=== PATIENT | female | born 2005 | race Caucasian/White ===

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

== ENCOUNTER 2023-01-08 21:36 | Outpatient (CLI) | payer MEDICAID, SELFPAY ==
[2023-01-08] VITALS (16 sets, daily range): BP systolic 119–124; BP diastolic 66; PULSE 100–194; RESP 15; TEMP 35.8; O2SAT 97–98; BMI 25.4
[2023-01-08 22:29] LABS: Bacteria Urine TRACE /hpf; Bilirubin Urine Neg (Negative); Blood Urine Neg (Negative); Glucose Urine UA Norm (Normal); Ketones Urine Negative (Negative); Leukocyte Esterase Urine Negative (Negative); Nitrate Urine Negative (Negative); Protein Urine Neg (Negative); Squamous Epithelial Cell Urine 0-4 /hpf (0-5); Urine Appearance Clear (CLEAR); Urine Color Yellow (Yellow); Urobilinogen Urine Norm (Negative); pH Urine 7 (5-7)
[2023-01-08 22:30] LABS: Add Urine Culture? No
== END 2023-01-08 23:12 | disposition home or self-care (01) ==
LOC: OPOB 21:37 → OBGYN 21:41
PROVIDERS: PCP Family Medicine; Visit Provider Family Medicine
DX: O26.899 Other specified pregnancy related conditions, unspecified trimester (principal); R25.2 Cramp and spasm; Z3A.00 Weeks of gestation of pregnancy not specified
CPT/HCPCS: 59025; 81001; 99211

== ENCOUNTER 2023-03-10 05:49 | Inpatient (IN) | payer MEDICAID, SELFPAY ==
[2023-03-10] VITALS (84 sets, daily range): BP systolic 85–134; BP diastolic 50–83; PULSE 72–112; RESP 14–18; TEMP 36.5–37.1; O2SAT 96–100; BMI 26.7
[2023-03-10 02:44] LABS: Basophils # 0.1 10^3/uL (0.0-0.1); Basophils % 0.5 %; Eosinophils # 0.2 10^3/uL (0.0-0.8); Eosinophils % 1.4 %; Lymphocytes # 2.3 10^3/uL (1.5-6.5); Mean Corpuscular Hemoglobin 24.7 pg (28.0-34.0); Mean Corpuscular Volume 79.5 fl (81-99); Mean Platelet Volume 12.2 fL (7.4-10.4); Monocytes % 9.5 %; Neutrophils # 7.08 10^3/uL (1.8-8.0); Neutrophils % 64.7 %; Nucleated Red Blood Cells % 0 %; Platelet Count 183 10^3/cmm (130-400); Red Blood Count 3.65 10^6/uL (4.1-5.3); Red Cell Distribution Width 14.6 % (12.1-15.1); White Blood Count 10.9 10^3/uL (4.5-13.0)
[2023-03-10] MEDS: lactated ringers 1,000 ML 999 ML IV (02:49)
[2023-03-10] MEDS: ampicillin 2,000 MG in sodium chloride 0.9% (plus) 50 ML 100 MG IV (02:49)
[2023-03-10 02:54] LABS: Amphetamines Screen Urine Negative (Negative); Barbiturates Screen Urine Negative (Negative); Benzodiazepines Screen Urine Negative (Negative); Cocaine Screen Urine Negative (Negative); Opiate Screen Urine Negative (Negative); PCP Screen Urine Negative (Negative); THC Screen Urine Negative (Negative)
[2023-03-10] MEDS: dextrose 5%-lactated ringers 1,000 ML 125 ML IV ×2 (03:55→10:31)
--- NOTE | 2023-03-10 04:20 | ANES.PAUD2 ---
Pre-Anesthetic Update Pre-Anesthetic Assessment: Date of Surgery/Procedure: 03/10/23 Proposed Procedure: Labor Epidural Any changes to Pre-Anesthetic Assessment?: No Last Intake: 2300 03/09/23 Labs Last 48hrs: Short CBC 03/10/23 Range/Units 02:30 WBC 10.9 (4.5-13.0) 10^3/ uL Hgb 9.0 L (11.5-15.3) g/dL Hct 29.0 L (37.0-47.0) % MCV 79.5 L (81-99) fl Plt Count 183 (130-400) 10^3/c mm Neut % (Auto) 64.7 % Neut # (Auto) 7.08 (1.8-8.0) 10^3/u L Vitals: Pulse Rate 89 03/10/23 04:14 Respiratory Effort Spontaneous, Non- Labored 03/10/23 02:37 Respiratory Depth Normal 03/10/23 02:37 Respiratory Patter n Normal 03/10/23 02:37 Blood Pressure 127/63 03/10/23 04:07 Pulse Oximetry 98 03/10/23 04:14 Oxygen Delivery Me thod Room Air 03/10/23 02:37 Cardiac Studies: No Data to Display Anesthesia Procedures Epidural: Time Out Performed: Yes Consents Signed: Procedure Consent Consent: from patient, risks and benefits reviewed and patient agrees to proceed Lumbar Level: L3-L4 Epidural position: sitting Epidural procedure: sterile prep of area, 1% lidocaine to numb the area, negative for paresthesia passed, test dose given, 1.5% xylocaine 1:200k epi, placed PCEA, no systemic response, sterile dressing applied and 0.2% Ropiavacaine @ mls/hr (10 ml/hr) Additional Comments: LUCIA at 5.5cm on first attempt catheter threaded with ease to 12cm - CSF - Heme test dose completed. 100mcg Fentanyl given via epidural patient reports adequate analgesia.
[2023-03-10] MEDS: ampicillin 1,000 MG in sodium chloride 0.9% (plus) 50 ML 100 MG IV ×2 (06:26→10:21)
[2023-03-10] MEDS: ondansetron 2 mg/ML SDV 2 mL 4 MG IVP (07:48)
[2023-03-10] MEDS: alum-mag-hydroxide-sime 30 mL UDC PO (07:48)
[2023-03-10] MEDS: metoclopramide 5 mg/mL SDV 2 mL 10 MG IV (10:30)
--- NOTE | 2023-03-10 12:03 | PM.DELIVERY ---
Delivery Note: Date of delivery: March 10, 2023 Pre-delivery diagnoses: 18-year-old 1 at 40 weeks estimated gestational age presenting in active labor. Post-delivery diagnoses: Status post status post spontaneous vaginal delivery Procedure: Spontaneous vaginal delivery Delivering Physician: Eddie Correa Estimated blood loss (mL): 100 Pre-Delivery Course: The patient presented to the hospital in active labor. She progressed to complete without difficulty. She had spontaneous rupture of membranes. She was GBS positive and received multiple doses of ampicillin. An epidural was placed. Delivery: DELIVERY: The patient progressed to complete without difficulty. She delivered a male with a weight of 3040 g with Apgars of 8, 9. The baby was delivered from the SUMMER position and placed on the mother's abdomen. The cord was then clamped and cut. There was no nuchal cord. There was no meconium. The placenta and 3 vessel cord were delivered intact shortly thereafter. The perineum and vaginal vault were carefully examined. No lacerations were noted. Both the mother and the baby were in stable condition. Post-Delivery Status: Good History History History 1 Term 0 0 Miscarriages/Ectopic 0 Living Children 1 A&P Assessment and plan (1) Supervision of normal first : I anticipate routine care. (2) 40 weeks gestation of : (3) GBS (group B Streptococcus carrier), +RV culture, currently : (4) Spontaneous vaginal delivery: Coding Level of Care Code Acute Code for Chg Fwd Diagnoses Supervision of normal first Z34.00 40 weeks gestation of Z3A.40 GBS (group B Streptococcus carrier), +RV culture, currently O99.820 Spontaneous vaginal delivery O80
[2023-03-10] MEDS: HYDROcodone-acetaminophen 5-325 mg Tablet PO ×2 (12:51→22:23)
[2023-03-10] MEDS: lanolin oint 7 gm 1 APPLIC TOPICAL (12:51)
[2023-03-10] MEDS: benzocaine-menthol 78 gm Canister 1 SPRAY TOPICAL (12:51)
[2023-03-10] MEDS: ibuprofen 800 mg tablet PO ×2 (14:56→22:23)
--- NOTE | 2023-03-10 16:38 | PC.NURSE ---
pt up to bathroom with moderate assistance. pt able to void 250mL. janet care demonstrated. gown and underwear changed. pad lined with tucks and dermaplast spray. pt then moved to OB8 via wheelchair. oriented to room/call light. proud parent pack and feeding log discussed. encouraged pt to rest while baby is sleeping, but to wake him to feed every 2-3 hours. pt instructed to call nurse for assistance next time she needs to use restroom
[2023-03-10] MEDS: docusate sodium 100 mg Capsule PO (17:45)
[2023-03-11 01:00] LABS: Hematocrit 28.3 % (37.0-47.0); Hemoglobin 8.5 g/dL (11.5-15.3); Mean Corpuscular Volume 83.2 fl (81-99); Mean Platelet Volume 11.7 fL (7.4-10.4); Platelet Count 170 10^3/cmm (130-400); White Blood Count 18.6 10^3/uL (4.5-13.0)
[2023-03-11 04:00] VITALS: BP 118/70; PULSE 84; RESP 181; TEMP 36.7; O2SAT 96
[2023-03-11] MEDS: HYDROcodone-acetaminophen 5-325 mg Tablet PO (04:43)
--- NOTE | 2023-03-11 08:02 | PM.OPHPUD ---
Labor & Delivery H&P Update Date of Procedure: March 10, 2023 Date H&P Performed: 03/09/23 Admission Diagnosis: 18-year-old 1 1 at 40 weeks estimated gestational age Other information: The patient is a 18-year-old 1 at 40 weeks EGA presented to the hospital. Her has been relatively unremarkable. Her labs have been as follows. Her blood type is O+. Her antibody screen is negative. She was THC positive. She passed her glucose screen. She was GBS positive. She is rubella immune. The remainder of her infectious disease profile was within normal limits.
[2023-03-11] MEDS: docusate sodium 100 mg Capsule PO ×2 (08:53→18:37)
[2023-03-11] MEDS: prenatal vitamin Capsule 1 CAP PO (08:53)
[2023-03-11] MEDS: ibuprofen 800 mg tablet PO ×3 (08:53→20:51)
--- NOTE | 2023-03-11 09:13 | ANE.PACU2 ---
Inpatient post-anesthesia follow up: Airway intact: Yes Vital signs: Temperature 98.1 F Pulse Rate 84 Respiratory Rate 181 Blood Pressure 118/70 Pulse Oximetry 96 Oxygen Delivery Me thod Room Air Oxygen Flow Rate Fraction of Inspir ed Oxygen Hydration adequate: Yes Nausea and vomiting: No Pain level: 2 Mental status: Baseline
[2023-03-11 09:29] VITALS: BP 121/74; PULSE 87; TEMP 36.6; O2SAT 98
[2023-03-11 16:20] VITALS: BP 118/77; PULSE 91; TEMP 36.8; O2SAT 98
[2023-03-11 21:00] VITALS: BP 116/74; PULSE 82; RESP 18; TEMP 37.3; O2SAT 97
[2023-03-12 04:00] VITALS: BP 113/68; PULSE 80; RESP 18; TEMP 37.1; O2SAT 97
[2023-03-12] MEDS: HYDROcodone-acetaminophen 5-325 mg Tablet PO (05:52)
--- NOTE | 2023-03-12 07:13 | P.DS_ITS ---
Discharge Providers [employer] INSTRUCTOR Date of Admission: 03/10/23 05:49 Date of Discharge: 03/12/23 Attending Provider at Admission: Eddie Correa MD Attending Provider at Discharge: Eddie Correa MD Primary Care Provider: Eddie Correa MD Diagnoses at Discharge Discharge Diagnosis (1) Supervision of normal first : Status: Acute (2) 40 weeks gestation of : Status: Acute (3) GBS (group B Streptococcus carrier), +RV culture, currently : Status: Acute (4) Spontaneous vaginal delivery: Status: Acute Reason for Visit Reason for Visit: contractions Hospital Course Hospital Course The patient presented to the hospital in active labor. Her labor was augmented with Cytotec. An epidural was placed. She progressed easily. She was on group B strep protocol and received multiple doses of antibiotics. She progressed to complete and had an unremarkable vaginal delivery. Her course was also unremarkable. Her bleeding was within normal limits. Her pain was well controlled. She breast-fed well. There were no concerns. Information Peripartum Data: Delivery Method: Vaginal Physical Exam Narrative: The patient is alert. She appears comfortable. Her heart has a regular rate and rhythm with no murmurs appreciated. Lungs are clear to auscultation bilaterally. Her fundus is firm and below the umbilicus. Urinary Catheter Management: Skelton Latex: Cath Placed During This Visit: yes, but has since been removed by the nurse Reason for Continuing Indwelling Catheter: Decision to DC Catheter Urinary Catheter Date of Insertion: 03/10/23 Urinary Catheter Time of Insertion: 04:40 Date Urinary Catheter Removed: 03/10/23 Time Urinary Catheter Discontinued: 11:20 History History History 1 Term 0 0 Miscarriages/Ectopic 0 Living Children 1 Discharge Data Studies Completed and Pending Laboratory Results WBC 18.6 10^3/uL (4.5-13.0) H 03/11/23 00:35 RBC 3.40 10^6/uL (4.1-5.3) L 03/11/23 00:35 Hgb 8.5 g/dL (11.5-15.3) L 03/11/23 00:35 Hct 28.3 % (37.0-47.0) L 03/11/23 00:35 MCV 83.2 fl (81-99) 03/11/23 00:35 MCH 25.0 pg (28.0-34.0) L 03/11/23 00:35 MCHC 30.0 g/dL (30.0-36.0) 03/11/23 00:35 RDW 15.0 % (12.1-15.1) 03/11/23 00:35 Plt Count 170 10^3/cmm (130-400) 03/11/23 00:35 MPV 11.7 fL (7.4-10.4) H 03/11/23 00:35 Neut % (Auto) 64.7 % 03/10/23 02:30 Lymph % (Auto) 21.0 % 03/10/23 02:30 [place] % (Auto) 9.5 % 03/10/23 02:30 Eos % (Auto) 1.4 % 03/10/23 02:30 Baso % (Auto) 0.5 % 03/10/23 02:30 Neut # (Auto) 7.08 10^3/uL (1.8-8.0) 03/10/23 02:30 Lymph # (Auto) 2.3 10^3/uL (1.5-6.5) 03/10/23 02:30 [place] # (Auto) 1.0 10^3/uL (0.2-0.9) H 03/10/23 02:30 Eos # (Auto) 0.2 10^3/uL (0.0-0.8) 03/10/23 02:30 Baso # (Auto) 0.1 10^3/uL (0.0-0.1) 03/10/23 02:30 Nucleated RBC % (auto) 0 % 03/10/23 02:30 Nucleated RBCs # 0.0 /100WBC 03/10/23 02:30 Urine Opiates Screen Negative ng/mL (Negative) 03/10/23 02:30 Ur Barbiturates Screen Negative ng/mL (Negative) 03/10/23 02:30 Ur Phencyclidine Scrn Negative ng/mL (Negative) 03/10/23 02:30 Ur Amphetamines Screen Negative ng/mL (Negative) 03/10/23 02:30 U Benzodiazepines Scrn Negative ng/mL (Negative) 03/10/23 02:30 Urine Cocaine Screen Negative ng/mL (Negative) 03/10/23 02:30 U Marijuana (THC) Screen Negative ng/mL (Negative) 03/10/23 02:30 Vitals Last Vital Signs Temp 98.7 F 03/12/23 04:00 Pulse 80 03/12/23 04:00 Resp 18 03/12/23 04:00 BP 113/68 03/12/23 04:00 Pulse Ox 97 03/12/23 04:00 O2 Del Method Room Air 03/12/23 04:00 Discharge Plan Discharge Patient Disposition: Home Prescriptions: New ibuprofen 800 mg Tablet 800 mg PO TID Qty: 45 0RF Continued prenat.vits,saul,[id number] Tablet 1 tab PO DAILY Qty: 90 3RF Discharge Orders: Discharge Order (Routine); Ordered 03/12/23 Ordered By: Eddie Correa Referrals: Eddie Correa MD [Primary Care Provider] - 6 Weeks Discharge Diet: Usual diet Discharge Activity: Limit activity as instructed Patient Instructions: Depression (DC), Bleeding (DC), Preeclampsia and Eclampsia After Delivery (GEN), Hemorrhage (DC), OB Discharge Report, OB Food/Drug Interaction Guide, OB Care at Home, Opioid Safety, OB Vaginal Deliveries Discharge Attestations [employer] INSTRUCTOR Time Spent in Discharge Care*: less than 30 min Coding Level of Care Code Acute Code for Chg Fwd Diagnoses Supervision of normal first Z34.00 40 weeks gestation of Z3A.40 GBS (group B Streptococcus carrier), +RV culture, currently O99.820 Spontaneous vaginal delivery O80
[2023-03-12] MEDS: docusate sodium 100 mg Capsule PO (09:52)
[2023-03-12] MEDS: prenatal vitamin Capsule 1 CAP PO (09:52)
[2023-03-12] MEDS: ibuprofen 800 mg tablet PO (09:53)
[2023-03-12 09:55] VITALS: BP 121/74; PULSE 84; RESP 17; TEMP 36.8; O2SAT 99
[2023-03-12 12:48] VITALS: BP 119/70; PULSE 91; RESP 17; TEMP 36.8; O2SAT 98
== END 2023-03-12 12:48 | disposition home or self-care (01) | DRG 807 ==
LOC: OPOB 05:51 → OBGYN 05:51
PROVIDERS: Admitting Provider Family Medicine; PCP Family Medicine; Visit Provider Family Medicine
DX: O99.824 Streptococcus B carrier state complicating childbirth (principal); Z37.0 Single live birth; Z3A.40 40 weeks gestation of pregnancy; O48.0 Post-term pregnancy; O99.334 Smoking (tobacco) complicating childbirth; F17.290 Nicotine dependence, other tobacco product, uncomplicated; O99.344 Other mental disorders complicating childbirth; F41.9 Anxiety disorder, unspecified; F32.A Depression, unspecified; F43.10 Post-traumatic stress disorder, unspecified
CPT/HCPCS: 36415; 51702; 59025; 59409; 80306; 85025; 85027; 96374; 98960; 99211; J0290; J2405; J2765; J2795; J3010; J7040; J7120; J7121

== ENCOUNTER → 2023-09-06 14:13 | Outpatient (BNVA) | payer MEDICAID, SELFPAY | PROVIDERS: PCP Family Medicine; Visit Provider Emergency Medicine | DX: R50.9 Fever, unspecified (principal) | CPT/HCPCS: 87400; 87426 ==

== ENCOUNTER 2023-10-02 05:20 | Emergency (ER) | payer MEDICAID, SELFPAY ==
[2023-10-02 05:28] VITALS: BP 135/81; PULSE 97; RESP 20; TEMP 36.6; O2SAT 97; BMI 23.0
[2023-10-02 05:40] LABS: Basophils % 0.4 %; Eosinophils # 0.5 10^3/uL (0.0-0.8); Eosinophils % 6.3 %; Hematocrit 36.8 % (36-47); Lymphocytes # 2.3 10^3/uL (1.5-6.5); Lymphocytes % 27.9 %; Mean Corpuscular HGB Conc 32.1 g/dL (30-55); Mean Corpuscular Hemoglobin 24.3 pg (27-33); Mean Corpuscular Volume 75.7 fl (85-98); Mean Platelet Volume 10.7 fL (7.4-10.4); Monocytes # 0.6 10^3/uL (0.2-0.9); Monocytes % 7.8 %; Neutrophils # 4.66 10^3/uL (1.8-8.0); Neutrophils % 57.4 %; Nucleated Red Blood Cells % 0 %; Platelet Count 229 10^3/cmm (157-399); Red Blood Count 4.86 10^6/uL (3.85-5.65); Red Cell Distribution Width 17.2 % (12.1-15.1); White Blood Count 8.11 10^3/uL (4.5-13.0)
--- NOTE | 2023-10-02 05:40 | ED_ITS ---
HPI - Abdominal Pain 2 General: Chief Complaint: Abdominal Pain Stated Complaint: n/v, right side pain Time Seen by Provider: 10/02/23 05:27 Source: patient Mode of arrival: ambulatory History of Present Illness: 18-year-old female presents emergency ro om with complaint of abdominal pain. Right upper quadrant abdominal pain that started last night. Nausea with vomiting. She denies any medic easy melena hematemesis cough cramps no fever sweats or chills she denies dysuria urgency or frequency no hematuria. MD elicited complaint: abdominal pain Onset (ago): hour(s) Pain Consistency: constant Location: RUQ Severity: mild Quality: cramping Exacerbating factors: nothing Relieving factors: nothing Associated Symptoms: Reports GI cramping, nausea, poor appetite and vomiting; Denies anorexia, belching, bloating, change in bowel habits, change in stool character, chills, coffee ground emesis, constipation, diarrhea, dyspepsia, dysuria, excessive flatus, fever(s), heartburn, hematochezia, hematuria, hematemesis, fecal incontinence, loose stools, melena and syncope Review of Systems 2 Const: Denies: fever(s) or chills Card: Denies: chest pain or syncope Resp: Denies: dyspnea GI: Reports: abdominal pain, nausea, vomiting and GI cramping; Denies: hematemesis, coffee ground emesis, heartburn, diarrhea, constipation, bloating, belching, excessive flatus, fecal incontinence, change in bowel habits, change in stool character, hematochezia or melena : Denies: dysuria, urinary frequency, urinary urgency or hematuria Musc: Denies: neck pain or back pain Skin/Breast: Denies: rash PFSH ED 2 PFSH: Medical History (Updated 10/02/23 @ 09:51 by Jorge Tena DO) Teratoma of right ovary Abnormal uterine bleeding Surgical History History of myringotomy (~2005) Family History Grandmother Hypertension Denies family history of Colon cancer Ovarian cancer Diabetes Heart disease Hypercholesteremia Breast cancer Uterine cancer Thyroid disease Stroke Social History (Reviewed 10/02/23 @ 05:41 by HERIBERTO Ang Substance/Drug Use: former Date of last use: Marijuana Do you think of yourself as: Straight/Heterosexual Physical Exam 2 Const: GENERAL APPEARANCE: cooperative and comfortable O RIENTATION/CONSCIOUSNESS: Yes awake, Yes oriented to person, Yes oriented to place and Yes oriented to time HENMT: COMMON NORMALS: normocephalic, atraumatic and hearing grossly normal bilaterally HEAD & SCALP: normocephalic and atraumatic Resp: COMMON NORMALS: normal respiratory effort, No retractions, No use of accessory muscles and clear to auscultation bilaterally AUSCULTATION: clear to auscultation bilaterally Cardio: COMMON NORMALS: regular rate, regular rhythm and No murmurs present (Cardio) RATE: regular rate RHYTHM: regular rhythm GI: COMMON NORMALS: No hepatosplenomegaly present AUSCULTATION: Yes normoactive bowel sounds PALPATION: Yes Tenderness to palpation present (GI) Details: RUQ, No Guarding due to palpation present (GI) and Yes No hepatosplenomegaly present Extremity: COMMON NORMALS: normal to inspection, capillary refill normal, no clubbing, cyanosis or edema, no calf tenderness and no pedal edema Neuro: SENSORIUM/ORIENTATION: Yes oriented to person, Yes oriented to place and Yes oriented to time Skin: COMMON NORMALS: no rashes or lesions noted GENERAL SKIN EXAM: no rashes or lesions noted Course 2 Vital Signs: Vital signs: Vital Signs Temperature 98 F 10/02/23 05:28 Pulse Rate 76 10/02/23 08:30 Respiratory Rate 20 H 10/02/23 05:28 Blood Pressure 114/66 10/02/23 09:30 Pulse Oximetry 97 10/02/23 09:30 MDM - Abdominal Pain Medical Decision Making No clinically significant findings on labs. CT shows area of colitis suspect this is viral in nature. Will have patient do clear liquid diet with ondansetron as needed. Medical Records I reviewed the patient's medical records. Lab Data I reviewed the patient's lab results. 10/02/23 05:34 10/02/23 05:34 Labs/Radiology: Laboratory Results WBC 8.11 10^3/uL (4.5-13.0) 10/02/23 05:34 RBC 4.86 10^6/uL (3.85-5.65) 10/02/23 05:34 Hgb 11.80 g/dL (12.4-14.8) L 10/02/23 05:34 Hct 36.8 % (36-47) 10/02/23 05:34 MCV 75.7 fl (85-98) L 10/02/23 05:34 MCH 24.3 pg (27-33) L 10/02/23 05:34 MCHC 32.1 g/dL (30-55) 10/02/23 05:34 RDW 17.2 % (12.1-15.1) H 10/02/23 05:34 Plt Count 229 10^3/cmm (157-399) 10/02/23 05:34 MPV 10.7 fL (7.4-10.4) H 10/02/23 05:34 Neut % (Auto) 57.4 % 10/02/23 05:34 Lymph % (Auto) 27.9 % 10/02/23 05:34 [place] % (Auto) 7.8 % 10/02/23 05:34 Eos % (Auto) 6.3 % 10/02/23 05:34 Baso % (Auto) 0.4 % 10/02/23 05:34 Neut # (Auto) 4.66 10^3/uL (1.8-8.0) 10/02/23 05:34 Lymph # (Auto) 2.3 10^3/uL (1.5-6.5) 10/02/23 05:34 [place] # (Auto) 0.6 10^3/uL (0.2-0.9) 10/02/23 05:34 Eos # (Auto) 0.5 10^3/uL (0.0-0.8) 10/02/23 05:34 Baso # (Auto) 0.0 10^3/uL (0.0-0.1) 10/02/23 05:34 Nucleated RBC % (auto) 0 % 10/02/23 05:34 Nucleated RBCs # 0.0 /100WBC 10/02/23 05:34 Sodium 140 mmol/L (136-145) 10/02/23 05:34 Potassium 3.6 mmol/L (3.5-5.1) 10/02/23 05:34 Chloride 106 mmol/L (98-107) 10/02/23 05:34 Carbon Dioxide 20 mmol/L (22-29) L 10/02/23 05:34 Anion Gap 17.6 (5-19) 10/02/23 05:34 BUN 9 mg/dL (6-20) 10/02/23 05:34 Creatinine 0.7 mg/dL (0.5-0.9) 10/02/23 05:34 GFR Calculation 106.7 mL/min (90-130) 10/02/23 05:34 Glucose 97 mg/dL (65-115) 10/02/23 05:34 Calculated Osmolality 289 mOsm/kg (285-295) 10/02/23 05:34 Calcium 9.8 mg/dL (8.5-10.5) 10/02/23 05:34 Total Bilirubin 0.3 mg/dL (0.15-1.2) 10/02/23 05:34 AST 17 U/L (0-32) 10/02/23 05:34 ALT 18 U/L (0-33) 10/02/23 05:34 Alkaline Phosphatase 43 U/L (35-105) 10/02/23 05:34 Total Protein 8.3 g/dL (6.6-8.7) 10/02/23 05:34 Albumin 4.5 g/dL (3.5-5.2) 10/02/23 05:34 Globulin 3.8 g/dL (1.3-4.6) 10/02/23 05:34 Lipase 39 U/L (13-60) 10/02/23 05:34 HCG, Qual Negative (Negative) 10/02/23 05:38 Urine Color Yellow (Yellow) 10/02/23 05:38 Urine Appearance Sl hazy (CLEAR) A 10/02/23 05:38 Urine pH 5 (5-7) 10/02/23 05:38 Ur Specific [place] 1.030 (1.005-1.030) 10/02/23 05:38 Urine Protein 1+ (Negative) H 10/02/23 05:38 Urine Glucose (UA) Norm (Normal) 10/02/23 05:38 Urine Ketones 1+ (Negative) H 10/02/23 05:38 Urine Blood Neg (Negative) 10/02/23 05:38 Urine Nitrate Negative (Negative) 10/02/23 05:38 Urine Bilirubin 1+ (Negative) H 10/02/23 05:38 Urine Urobilinogen 1 mg/dL (Negative) H 10/02/23 05:38 Ur Leukocyte Esterase Trace (Negative) H 10/02/23 05:38 Urine RBC 0-4 /hpf (0-2) H 10/02/23 05:38 Urine WBC 0-4 /hpf (0-5) H 10/02/23 05:38 Ur Squamous Epith Cells 0-4 /hpf (0-5) H 10/02/23 05:38 Calcium Oxalate Crystal 0-4 /hpf H 10/02/23 05:38 Amorphous Sediment Not Reportable 10/02/23 05:38 Urine Bacteria Trace /hpf (NONE) 10/02/23 05:38 Urine Mucus 1+ /hpf 10/02/23 05:38 All radiology interpretation(s) finalized by discharge Discharge Plan Discharge Patient Disposition: Home Clinical Impression: Colitis Condition: Stable Prescriptions: New ondansetron HCl 4 mg tablet 4 mg PO Q6H PRN (Reason: nausea and vomiting) Qty: 20 0RF No Action ibuprofen 600 mg tablet 600 mg PO Q8H PRN (Reason: pain) Qty: 60 0RF Xulane 150-35 mcg/24 hr patch weekly See Rx Instructions .ROUTE .COMPLEX Rx Instructions: 1 patch DIRECTED Discharge Orders: Discharge ED (Routine); Ordered 10/02/23 Ordered By: Jroge Tena Referrals: Eddie Correa MD [Primary Care Provider] - Discharge Diet: Usual diet Discharge Activity: Increase activity as tolerated Patient Instructions: Colitis (ED), Opioid Safety, Pain Management Activity Restrictions/Additional Instructions: Thank you for choosing [facility] for your healthcare needs today. Please realize this is an emergency room and that we are providing you with a medical screening exam and this may not be complete and all inclusive of all the testing and or work up that you may need to determine your ailment or severity of your illness. It is very important that you follow up as instructed or that you return to the Emergency Department should you have concerns or if your condition changes or worsens in any way. You are seen today for abdominal pain laboratory test did not show clinically significant abnormalities the CT showed a small area of potential colitis which is an irritation of the colon. This is likely the cause of your symptoms. Would avoid ibuprofen use ondansetron or Tylenol as needed for symptoms. Clear liquid diet for the next 24 to 48 hours and advance as tolerated Coding Level of Care Code ED Safety Compliance Specialist for Cosmo Sanchez
[2023-10-02 05:49] LABS: HCG Qualitative Urine. Negative (Negative)
[2023-10-02 06:02] LABS: Alanine Aminotransferase 18 U/L (0-33); Albumin Level 4.5 g/dL (3.5-5.2); Alkaline Phosphatase 43 U/L (35-105); Anion Gap 17.6 (5-19); Aspartate Amino Transferase 17 U/L (0-32); Blood Urea Nitrogen 9 mg/dL (6-20); Calcium 9.8 mg/dL (8.5-10.5); Carbon Dioxide 20 mmol/L (22-29); Chloride 106 mmol/L (98-107); Globulin 3.8 g/dL (1.3-4.6); Glomerular Filtration Rate 106.7 mL/min (90-130); Glucose 97 mg/dL (65-115); Lipase 39 U/L (13-60); Osmolality Calculated 289 mOsm/kg (285-295); Potassium 3.6 mmol/L (3.5-5.1); Sodium 140 mmol/L (136-145); Total Bilirubin 0.3 mg/dL (0.15-1.2); Total Protein 8.3 g/dL (6.6-8.7)
--- NOTE | 2023-10-02 06:08 | CT_ITS ---
WS: [id number] CT ABDOMEN AND PELVIS WITH CONTRAST HISTORY: abd pain TECHNIQUE: Imaging performed of the abdomen and pelvis with IV contrast. Single phase imaging of the abdomen. Coronal and sagittal reformats are submitted. All CT scans at [facility] use at [address] one of these dose optimization techniques: automated exposure control; mA and/or kV adjustment per patient size (includes targeted exams where dose is matched to clinical indication); or iterative re construction. IV CONTRAST: Omnipaque 350; 80 mL IV. Oral contrast: No DLP: 361.43 mGy.cm COMPARISON: 04/12/2022 Lower thorax: Lung bases are clear. Heart is normal size. Small hiatal hernia. Liver/biliary system: Normal size with no intrahepatic dilatation. Gallbladder: Normal. No gallstones or wall thickening. No pericholecystic fluid. Pancreas: Normal size pancreas and pancreatic duct. No adjacent inflammation. Spleen: Normal size spleen. No mass or infarct. Adrenal glands: Normal. Right kidney: Normal. Left kidney: Normal. Aorta: Normal. Lymphadenopathy: None. Free fluid: Small amount of physiologic free fluid in the cul-de-sac just to the RIGHT of midline. GI tract: There is mild fluid distention of the colon. No mucosal or submucosal edema. The appendix i s normal and contains air. No small bowel obstruction. Abdominal wall: Unremarkable abdominal wall. No hernia. Pelvis: Small amount of physiologic free fluid. Previously described mature teratoma in the RIGHT pel vis has been removed surgically. Circumferential enhancing corpus luteal cyst LEFT ovary. Uterus is s lightly retroverted. Slightly increased amount of fluid in the endometrial canal is probably related to menses. No mass. Bones: Unremarkable. IMPRESSION: 1. Slight increased amount of fluid within the colon suggesting mild colitis which may be infectious . There is no submucosal edema or pericolonic inflammation. 2. Small amount of physiologic free fluid in the pelvis. 3. Surgically removed mature teratoma in the RIGHT adnexa.
[2023-10-02 06:28] LABS: Add Urine Culture? No; Add Urine Microscopic? YES; Bacteria Urine TRACE /hpf; Bilirubin Urine 1+ (Negative); Blood Urine Neg (Negative); Calcium Oxalate Crystals Urine 0-4 /hpf; Glucose Urine UA Norm (Normal); Ketones Urine 1+ (Negative); Leukocyte Esterase Urine Trace (Negative); Mucus Urine 1+ /hpf; Nitrate Urine Negative (Negative); Protein Urine 1+ (Negative); RBC Urine 0-4 /hpf (0-2); Squamous Epithelial Cell Urine 0-4 /hpf (0-5); Urine Appearance SL Hazy (CLEAR); Urine Color Yellow (Yellow); Urobilinogen Urine 1 mg/dL (Negative); WBC Urine 0-4 /hpf (0-5); pH Urine 5 (5-7)
[2023-10-02] MEDS: iohexol 350 mg/mL 500 mL Btl (per mL) IV (06:29)
[2023-10-02] MEDS: sodium chloride 0.9% 1,000 ML 999 ML IV (06:43)
[2023-10-02] MEDS: ondansetron 2 mg/ML SDV 2 mL 4 MG IVP (06:43)
[2023-10-02 07:32] VITALS: BP 125/77; O2SAT 98
[2023-10-02 08:30] VITALS: BP 111/66; PULSE 76; O2SAT 97
[2023-10-02 09:30] VITALS: BP 114/66; O2SAT 97
== END 2023-10-02 10:32 | disposition home or self-care (01) ==
PROVIDERS: Emergency Medicine; Emergency Provider Family Medicine; PCP Family Medicine
DX: K52.9 Noninfective gastroenteritis and colitis, unspecified (principal)
CPT/HCPCS: 74177; 80053; 81001; 81025; 83690; 85025; 96374; 99285; J2405; J7030; Q9967

== ENCOUNTER → 2024-01-05 17:52 | Outpatient (BNVA) | payer MEDICAID, SELFPAY | PROVIDERS: PCP Family Medicine; Visit Provider Nurse Practitioner | DX: J02.9 Acute pharyngitis, unspecified (principal) | CPT/HCPCS: 87880 ==

== ENCOUNTER → 2024-09-24 14:00 | Outpatient (BNVA) | payer MEDICAID, SELFPAY | PROVIDERS: PCP Family Medicine | DX: R39.9 Unspecified symptoms and signs involving the genitourinary system (principal) | CPT/HCPCS: 81000 ==

== ENCOUNTER 2024-10-28 17:55 | Emergency (ER) | payer MEDICAID, SELFPAY ==
[2024-10-28 17:58] VITALS: BP 115/67; PULSE 90; RESP 14; TEMP 36.7; O2SAT 98; BMI 24.7
[2024-10-28 19:04] LABS: Basophils # 0.1 10^3/uL (0.0-0.1); Basophils % 0.7 %; Eosinophils # 0.4 10^3/uL (0.0-0.8); Eosinophils % 5.6 %; Hematocrit 38.3 % (36-47); Lymphocytes # 2.1 10^3/uL (0.8-4.8); Lymphocytes % 27.2 %; Mean Corpuscular HGB Conc 31.3 g/dL (30-55); Mean Corpuscular Hemoglobin 25.3 pg (27-33); Mean Corpuscular Volume 80.8 fl (85-98); Mean Platelet Volume 10.1 fL (7.4-10.4); Monocytes # 0.8 10^3/uL (0.2-0.9); Monocytes % 10.3 %; Neutrophils # 4.32 10^3/uL (1.8-7.7); Neutrophils % 56.1 %; Nucleated Red Blood Cells % 0 %; Platelet Count 275 10^3/cmm (157-399); Red Blood Count 4.74 10^6/uL (3.85-5.65); Red Cell Distribution Width 16.8 % (12.1-15.1); White Blood Count 7.69 10^3/uL (3.29-11.43)
[2024-10-28 19:18] LABS: HCG, Serum Qual Positive (Negative)
[2024-10-28 19:22] LABS: Alanine Aminotransferase 13 U/L (0-33); Albumin Level 4.7 g/dL (3.5-5.2); Alkaline Phosphatase 45 U/L (35-105); Aspartate Amino Transferase 20 U/L (0-32); Blood Urea Nitrogen 5 mg/dL (6-20); Calcium 9.4 mg/dL (8.5-10.5); Carbon Dioxide 21 mmol/L (22-29); Chloride 106 mmol/L (98-107); Globulin 3.5 g/dL (1.3-4.6); Glomerular Filtration Rate 126.2 mL/min (90-130); Glucose 89 mg/dL (65-115); Lipase 35 U/L (13-60); Osmolality Calculated 285 mOsm/kg (285-295); Sodium 139 mmol/L (136-145); Total Bilirubin 0.4 mg/dL (0.15-1.2); Total Protein 8.2 g/dL (6.6-8.7)
[2024-10-28 19:24] LABS: Anion Gap 15.9 (5-19); Potassium 3.9 mmol/L (3.5-5.1)
[2024-10-28 20:39] VITALS: PULSE 88; RESP 16; O2SAT 99
[2024-10-28 20:46] LABS: Bilirubin Urine Negative (Negative); Blood Urine Non-haemolysed trace (Negative); Glucose Urine UA Negative (Normal); Ketones Urine 1+ (Negative); Leukocyte Esterase Urine 3+ (Negative); Nitrate Urine Negative (Negative); Protein Urine Trace (Negative); Specific Gravity, Urine 1.016 (1.005-1.030); Urine Appearance Cloudy (CLEAR); Urine Color Yellow (Yellow); Urobilinogen Urine 0.2 mg/dL (Negative); pH Urine 5.5 (5-7)
[2024-10-28 20:51] LABS: Add Urine Microscopic? YES; Bacteria Urine 3+ /hpf; Hyaline Casts Urine 1.21 /lpf; RBC Urine 0-2 /hpf (0-2); Squamous Epithelial Cell Urine 21-50 /hpf (0-5); WBC Urine >100 /hpf (0-5)
[2024-10-28 20:54] LABS: Add Urine Culture? Yes
--- NOTE | 2024-10-28 20:57 | W.ED.ABDPA2 ---
HPI - Abdominal Pain General: Chief Complaint: Abdominal Pain Stated Complaint: abd pain Time Seen by Provider: 10/28/24 20:30 Source: patient Mode of arrival: ambulatory Limitations: no limitations History of Present Illness: Patient is a 19-year-old female who presents the emergency department complaining of right-sided abdominal pain beginning suddenly last night. She is noting nausea as well as associated anorexia. She still has her appendix, states last normal menstrual period was 3 weeks ago. Denying any current vaginal bleeding or feeling that she has been to pass out. No lower abdominal pain or suprapubic pain, states it is primarily to the right side/flank region. Pain does not radiate, has been constant since onset. She states it is worse with lying flat, no specific alleviating factors. She does have a history of right ovarian removal after having teratoma. She still has her appendix and gallbladder. She is not reporting any dysuria or hematuria. No nausea vomiting diarrhea, chest pain, shortness breath, or other symptoms at this time. MD elicited complaint: abdominal pain Pertinent past history: other (Teratoma) Onset (ago): day(s) Pain Consistency: constant Location: R flank and Other ( Right abdomen ) Severity: moderate Quality: cramping Radiation: none Exacerbating factors: other (Supine) Relieving factors: nothing Associated Symptoms: Reports nausea; Denies bloating, change in stool character, chills, constipation, diarrhea, dysuria, fever(s), hematochezia, syncope and vomiting Related Data Previous Rx's Medication Instructions Recorded nitrofurantoin 100 mg PO BID #20 caps 10/28/24 monohydrate/macrocrystals 100 mg capsule (Macrobid) Allergies Allergy/AdvReac Type Severity Reaction Status Date / Time No Known Allergies Allergy Verified 10/28/24 17:29 Review of Systems General: Reports: 10 or more systems reviewed and unremarkable except in HPI and below Const: Reports: change in appetite; Denies: fever(s), chills, change in weight or diaphoresis ENMT: Denies: throat pain or hoarseness Card: Denies: chest pain, palpitations, lightheadedness or syncope Resp: Denies: dyspnea, productive cough or wheezing GI: Reports: abdominal pain and nausea; Denies: vomiting, diarrhea, constipation, bloating, change in stool character or hematochezia : Denies: flank pain, difficulty voiding, dysuria, urinary frequency, urinary urgency or vaginal bleeding Musc: Denies: neck pain or back pain Skin/Breast: Denies: rash or new lesions Neuro: Denies: headache(s) or dizziness PFSH ED PFSH: Medical History Teratoma of right ovary Abnormal uterine bleeding Surgical History History of myringotomy (~2005) Family History Grandmother Hypertension Denies family history of Colon cancer Ovarian cancer Diabetes Heart disease Hypercholesteremia Breast cancer Uterine cancer Thyroid disease Stroke Social History Smoking and tobacco/nicotine status: current every day tobacco/nicotine user (vape) Substance/Drug Use: former Date of last use: Marijuana Do you think of yourself as: Straight/Heterosexual Physical Exam Const: COMMON NORMALS: no acute distress, average body habitus, patient oriented x3, no limitations, healthy appearing, alert and well nourished GENERAL APPEARANCE: cooperative and comfortable ORIENTATION/CONSCIOUSNESS: Yes awake HENMT: COMMON NORMALS: normocephalic, atraumatic, hearing grossly normal bilaterally, external ears normal, Normal external nose present, Normal nasal mucous membranes and turbinates present and moist oral mucous membranes HEAD & SCALP: normocephalic and atraumatic NOSE: Normal external nose present and Normal nasal mucous membranes and turbinates present EXTERNAL EAR: Yes external ears normal Eye: COMMON NORMALS: Equal, round and reactive pupils present, EOMs intact bilaterally, conjunctivae normal and normal visual rosa by confrontation CONJUNCTIVA: Yes conjunctivae normal PUPIL: Yes Equal, round and reactive pupils present Neck/C-Spine: COMMON NORMALS: full ROM, supple, no meningeal signs and no JVD Resp: COMMON NORMALS: normal respiratory effort, No retractions, No use of accessory muscles and clear to auscultation bilaterally AUSCULTATION: clear to auscultation bilaterally, no crackles, no rales, no rhonchi and no wheezes Cardio: COMMON NORMALS: no JVD, regular rate, regular rhythm, S1 normal heart sound present, S2 normal heart sound present, No gallops present (Cardio), No clicks present (Cardio), No murmurs present (Cardio), No rub (Cardio) and Peripheral pulses 2+ throughout RATE: regular rate RHYTHM: regular rhythm HEART SOUNDS: S1 normal heart sound present and S2 normal heart sound present PERIPHERAL PULSES: Peripheral pulses 2+ throughout GI: COMMON NORMALS: Normal to inspection, nondistended, normoactive bowel sounds present, Soft to palpation, No hepatosplenomegaly present and no masses AUSCULTATION: Yes normoactive bowel sounds PALPATION: Yes Soft to palpation, No Guarding due to palpation present (GI), No Rigid due to palpation and Yes No hepatosplenomegaly present RECTAL EXAM: deferred OTHER: Tender to palpation to the right mid upper abdomen radiating towards the right flank. Negative McBurney's point tenderness. Negative Rovsing sign. Negative heel strike. : COMMON NORMALS: Yes no CVA tenderness BLADDER/KIDNEY EXAM: Yes no CVA tenderness Back/Pelvis: COMMON NORMALS: no CVA tenderness Extremity: COMMON NORMALS: normal to inspection and full ROM Neuro: COMMON NORMALS: patient oriented x3, moves all extremities, no focal motor deficits and no sensory deficits noted SENSORIUM/ORIENTATION: Yes alert MENINGEAL SIGNS: Yes no meningeal signs Psych: COMMON NORMALS: mental status grossly normal, cooperative and speech normal SPEECH: Yes normal speech Skin: COMMON NORMALS: no rashes or lesions noted GENERAL SKIN EXAM: no rashes or lesions noted Course Vital Signs: Vital signs: Vital Signs Temperature 98.0 F 10/28/24 17:58 Pulse Rate 80 10/28/24 22:40 Respiratory Rate 16 10/28/24 22:40 Blood Pressure 122/70 10/28/24 22:40 Pulse Oximetry 100 10/28/24 22:40 MDM - Abdominal Pain Medical Decision Making Patient presented with right sided abdominal pain beginning last night suddenly associated with anorexia and nausea. Vitals were stable on arrival. Physical exam showing right sided abdominal tenderness to palpation, there were no peritoneal signs. Her serum test was positive, quantitative 328. States her last normal menstrual period was 3 weeks ago she is likely about 3 weeks based off this. Her CRP was negative, and based off of unconvincing physical exam findings I do not suspect an acute appendicitis. She also has her right ovary removed due to a teratoma, and her hCG is not significantly elevated and I am not suspicious of ectopic at this time. Ultrasound was obtained and showed no appendiceal abnormalities or other peritoneal findings. The rest of her lab work unremarkable. Her urinalysis does show signs of a pretty significant UTI despite being contaminated sample, she recently had a UTI treated for and was on Cipro. With her being we will have to treat her with Macrobid, and I do think her pain related to changes such as musculoskeletal aches, or from this UTI. Being that she is this limited evaluation with a CT scan or x-ray, and thus encouraged her to very closely monitor her condition for any pain worsening, specifically to the right lower quadrant region, high fever, or significant vomiting or other signs of illness and return to the ED as soon as possible. She is comfortable with this plan, and she will follow-up with primary care early next week for routine reevaluation as she will need set up with an OB. I discussed this case with both Dr. Martinez and Dr. Rodriguez. Lab Data 10/28/24 18:58 10/28/24 18:58 Labs/Radiology: Laboratory Results WBC 7.69 10^3/uL (3.29-11.43) 10/28/24 18:58 RBC 4.74 10^6/uL (3.85-5.65) 10/28/24 18:58 Hgb 12.00 g/dL (11.27-16.99) 10/28/24 18:58 Hct 38.3 % (36-47) 10/28/24 18:58 MCV 80.8 fl (85-98) L 10/28/24 18:58 MCH 25.3 pg (27-33) L 10/28/24 18:58 MCHC 31.3 g/dL (30-55) 10/28/24 18:58 RDW 16.8 % (12.1-15.1) H 10/28/24 18:58 Plt Count 275 10^3/cmm (157-399) 10/28/24 18:58 MPV 10.1 fL (7.4-10.4) 10/28/24 18:58 Neut % (Auto) 56.1 % 10/28/24 18:58 Lymph % (Auto) 27.2 % 10/28/24 18:58 [place] % (Auto) 10.3 % 10/28/24 18:58 Eos % (Auto) 5.6 % 10/28/24 18:58 Baso % (Auto) 0.7 % 10/28/24 18:58 Neut # (Auto) 4.32 10^3/uL (1.8-7.7) 10/28/24 18:58 Lymph # (Auto) 2.1 10^3/uL (0.8-4.8) 10/28/24 18:58 [place] # (Auto) 0.8 10^3/uL (0.2-0.9) 10/28/24 18:58 Eos # (Auto) 0.4 10^3/uL (0.0-0.8) 10/28/24 18:58 Baso # (Auto) 0.1 10^3/uL (0.0-0.1) 10/28/24 18:58 Nucleated RBC % (auto) 0 % 10/28/24 18:58 Nucleated RBCs # 0.0 /100WBC 10/28/24 18:58 Sodium 139 mmol/L (136-145) 10/28/24 18:58 Potassium 3.9 mmol/L (3.5-5.1) 10/28/24 18:58 Chloride 106 mmol/L (98-107) 10/28/24 18:58 Carbon Dioxide 21 mmol/L (22-29) L 10/28/24 18:58 Anion Gap 15.9 (5-19) 10/28/24 18:58 BUN 5 mg/dL (6-20) L 10/28/24 18:58 Creatinine 0.6 mg/dL (0.5-0.9) 10/28/24 18:58 GFR Calculation 126.2 mL/min (90-130) 10/28/24 18:58 Glucose 89 mg/dL (65-115) 10/28/24 18:58 Calculated Osmolality 285 mOsm/kg (285-295) 10/28/24 18:58 Calcium 9.4 mg/dL (8.5-10.5) 10/28/24 18:58 Total Bilirubin 0.4 mg/dL (0.15-1.2) 10/28/24 18:58 AST 20 U/L (0-32) 10/28/24 18:58 ALT 13 U/L (0-33) 10/28/24 18:58 Alkaline Phosphatase 45 U/L (35-105) 10/28/24 18:58 C-Reactive Protein 4.0 mg/L (0.0-4.9) 10/28/24 18:58 Total Protein 8.2 g/dL (6.6-8.7) 10/28/24 18:58 Albumin 4.7 g/dL (3.5-5.2) 10/28/24 18:58 Globulin 3.5 g/dL (1.3-4.6) 10/28/24 18:58 Lipase 35 U/L (13-60) 10/28/24 18:58 HCG, Qual Positive (Negative) H 10/28/24 18:58 Ser , Semi-Qnt 328.30 mIU/mL 10/28/24 18:58 Urine Color Yellow (Yellow) 10/28/24 20:04 Urine Appearance Cloudy (CLEAR) A 10/28/24 20:04 Urine pH 5.5 (5-7) 10/28/24 20:04 Ur Specific [place] 1.016 (1.005-1.030) 10/28/24 20:04 Urine Protein Trace (Negative) A 10/28/24 20:04 Urine Glucose (UA) Negative (Normal) 10/28/24 20:04 Urine Ketones 1+ (Negative) H 10/28/24 20:04 Urine Blood Non-haemolysed trace (Negative) 10/28/24 20:04 Urine Nitrate Negative (Negative) 10/28/24 20:04 Urine Bilirubin Negative (Negative) 10/28/24 20:04 Urine Urobilinogen 0.2 mg/dL (Negative) 10/28/24 20:04 Ur Leukocyte Esterase 3+ (Negative) A 10/28/24 20:04 Urine RBC 0-2 /hpf (0-2) 10/28/24 20:04 Urine WBC >100 /hpf (0-5) H 10/28/24 20:04 Ur Squamous Epith Cells 21-50 /hpf (0-5) H 10/28/24 20:04 Amorphous Sediment Not Reportable 10/28/24 20:04 Urine Bacteria 3+ /hpf (NONE) H 10/28/24 20:04 Hyaline Casts 1.21 /lpf 10/28/24 20:04 All radiology interpretation(s) finalized by discharge Discharge Plan Discharge Patient Disposition: Home Clinical Impression: First trimester Urinary tract infection during Qualifiers: Trimester: first trimester Qualified Code(s): O23.41 - Unspecified infection of urinary tract in , first trimester Condition: Stable Prescriptions: New nitrofurantoin monohyd/m-cryst [Macrobid] 100 mg capsule 100 mg PO BID Qty: 20 0RF Discharge Orders: Discharge ED (Routine); Ordered 10/28/24 Ordered By: Hernan Renteria Referrals: Eddie Correa MD [Primary Care Provider] - Patient Instructions: Urinary Tract Infection in (ED) Activity Restrictions/Additional Instructions: Please take Macrobid as prescribed. Please return with any worsening of pain specifically in the right lower quadrant region, high fever, significant vomiting, or other concerns that you have. Please follow-up closely with your primary care provider early next week as we discussed. Coding Level of Care Code ED Correctional Officer Captain for Cosmo Sanchez
--- NOTE | 2024-10-28 21:03 | USR_ITS ---
PROCEDURE INFORMATION: Exam: US Abdomen, Limited; Right Upper Quadrant Exam date and time: 10/28/2024 10:22 PM Age: 19 years old Clinical indication: Abdominal pain; Localized; Right lower quadrant (rlq); ; Patient did have right ovary removed, but appendix remains; Additional info: Right side pain, preg, HX of ovarian teratoma, please attempt visualization of appendix and right pelvic TECHNIQUE: Imaging protocol: Real time ultrasound of the abdomen with image documentation. Limited exam focused on the right upper quadrant. COMPARISON: US abdomen complete* [id number] 10/27/2019 7:20 AM FINDINGS: Intestine: Mobile compressible bowel loops are noted. Appendix: The appendix is not visualized in the right lower quadrant. Intraperitoneal space: No free fluid. Other findings: No secondary signs inflammatory changes in the right lower quadrant. US/US appendix [id number] IMPRESSION: As above.
[2024-10-28 21:54] VITALS: BP 131/77; PULSE 81; RESP 16; O2SAT 99
[2024-10-28 22:40] VITALS: BP 122/70; PULSE 80; RESP 16; O2SAT 100
[2024-10-28] MEDS: nitrofurantoin SR (BID) 100 mg Capsule PO (22:56)
== END 2024-10-28 22:57 | disposition home or self-care (01) ==
PROVIDERS: Emergency Medicine; Emergency Provider Physician Assistant; PCP Family Medicine
DX: O23.41 Unspecified infection of urinary tract in pregnancy, first trimester (principal); Z3A.01 Less than 8 weeks gestation of pregnancy; F17.290 Nicotine dependence, other tobacco product, uncomplicated
CPT/HCPCS: 36415; 76705; 80053; 81001; 83690; 84702; 84703; 85025; 86140; 87077; 87086; 87186; 99284

== ENCOUNTER 2024-11-13 11:21 | Emergency (ER) | payer MEDICAID, SELFPAY ==
[2024-11-13 12:08] VITALS: BP 106/72; PULSE 92; RESP 18; TEMP 36.7; O2SAT 100; BMI 24.7
[2024-11-13 12:41] LABS: Basophils % 0.5 %; Eosinophils # 0.3 10^3/uL (0.0-0.8); Eosinophils % 3.1 %; Lymphocytes # 1.8 10^3/uL (0.8-4.8); Mean Corpuscular HGB Conc 31.3 g/dL (30-55); Mean Corpuscular Hemoglobin 25.2 pg (27-33); Mean Corpuscular Volume 80.5 fl (85-98); Mean Platelet Volume 10.2 fL (7.4-10.4); Monocytes # 0.8 10^3/uL (0.2-0.9); Monocytes % 8.8 %; Neutrophils # 5.74 10^3/uL (1.8-7.7); Neutrophils % 66.4 %; Nucleated Red Blood Cells % 0 %; Platelet Count 243 10^3/cmm (157-399); Red Blood Count 4.97 10^6/uL (3.85-5.65); Red Cell Distribution Width 15.9 % (12.1-15.1); White Blood Count 8.65 10^3/uL (3.29-11.43)
--- NOTE | 2024-11-13 13:29 | USR_ITS ---
PROCEDURE INFORMATION: Exam: US First Trimester, Transabdominal and US , Transvaginal Exam date and time: 11/13/2024 1:55 PM Age: 19 years old Clinical indication: Lmp or gestational age (in weeks): 5w2d; Antepartum complications; Bleeding; ; Prior surgery; Surgery date: 6+ months; Surgery type: Unsure of dates- RT ovary removed; Additional info: Abd pain, vag bleeding LABS AND CLINICAL REPORTS: Gestational age (Established): 5 w 6 d Estimated due date (Established): 07/10/2025 TECHNIQUE: Imaging protocol: Real-time transabdominal obstetrical ultrasound of the maternal pelvis and a first trimester , less than 14 weeks 0 days, with image documentation. Transvaginal imaging was used for better evaluation of the fetus, adnexa, and/or cervix. COMPARISON: US appendix [id number] 10/28/2024 10:22 PM FINDINGS: GESTATION: Gestation: Sac-like structure identified. pole and yolk sac not identified. Embryo/ cardiac activity (BPM): Not applicable. BIOMETRY: Gestational age (AUA): Likely 5 weeks 2 days. MATERNAL: Uterus: Globular uterus. Cervix: Cervical length measures 3 cm. Cervix Cervical measures 3 centimeters. Gestational sac-like structure identified measuring 0.5 centimeters. Right ovary/adnexa: Status post right oophorectomy. There is anechoic small fluid collection along the right adnexa. Left ovary/adnexa: Unremarkable. Tomorrow US/US OB <=14 wk fetus w transvag IMPRESSION: 1. Gestational sac-like structure identified measuring 0.5 centimeters. Findings may represent early versus of unknown viability. Recommend repeat ultrasound 7-10 days 4 further management. 2. No pole identified at this time. 3. Small amount of fluid along the right adnexa. Attention on follow-up.
[2024-11-13 14:06] LABS: Bilirubin Urine Negative (Negative); Blood Urine Trace (Negative); Glucose Urine UA Negative (Normal); Ketones Urine Negative (Negative); Leukocyte Esterase Urine Trace (Negative); Nitrate Urine Negative (Negative); Protein Urine Negative (Negative); Specific Gravity, Urine 1.014 (1.005-1.030); Urine Appearance Clear (CLEAR); Urine Color Yellow (Yellow); Urobilinogen Urine 0.2 mg/dL (Negative); pH Urine 6.5 (5-7)
--- NOTE | 2024-11-13 14:10 | ED_ITS ---
HPI - Female Genitourinary 2 General: Chief complaint: Vaginal Bleeding Stated complaint: 7 weeks , spotting Time Seen by Provider: 11/13/24 12:58 History of Present Illness: Patient is a 19-year-old female that is a A0 Patient estimates that her last menstrual cycle was early September. Patient arrives here due to onset of vaginal bleeding last night that worsened this morning. Requires a sanitary napkin She also reports 3 urinary tract infections recently. Was treated last week for UTI. Related Data Home Medications ?Medication ?Instructions ?Recorded ?Confirmed No Known Home Medications 11/13/2410/29 Allergies Allergy/AdvReac Type Severity Reaction Status Date / Time No Known Allergies Allergy Verified 10/28/24 17:29 Review of Systems 2 General: Reports: 10 or more systems reviewed and unremarkable except in HPI and below : Reports: dysuria, urinary frequency and vaginal bleeding PFSH ED 2 PFSH: Medical History Teratoma of right ovary Abnormal uterine bleeding Surgical History History of myringotomy (~2005) Family History Grandmother Hypertension Denies family history of Colon cancer Ovarian cancer Diabetes Heart disease Hypercholesteremia Breast cancer Uterine cancer Thyroid disease Stroke Social History Smoking and tobacco/nicotine status: current every day tobacco/nicotine user (vape) Substance/Drug Use: former Date of last use: Marijuana Do you think of yourself as: Straight/Heterosexual Physical Exam 2 Const: COMMON NORMALS: no acute distress, patient oriented x3 and alert G ENERAL APPEARANCE: cooperative ORIENTATION/CONSCIOUSNESS: Yes awake, Yes oriented to person, Yes oriented to place and Yes oriented to time Neck/C-Spine: COMMON NORMALS: full ROM GENERAL: Yes normal visual inspection Lymph: LYMPHATIC: no lymphadenopathy noted Chest: COMMONS NORMALS: normal inspection of the chest Breast/axilla inspection: Yes no chest deformity, asymmetry, normal contours, no nodules, masses, tenderness Resp: COMMON NORMALS: normal respiratory effort, No retractions, No use of accessory muscles and clear to auscultation bilaterally EFFORT & INSPECTION: Yes able to speak in complete sentences and Yes symmetric chest movement A USCULTATION: clear to auscultation bilaterally Cardio: COMMON NORMALS: regular rate, regular rhythm and Peripheral pulses 2+ throughout RATE: regular rate RHYTHM: regular rhythm PERIPHERAL PULSES: Peripheral pulses 2+ throughout GI: COMMON NORMALS: Normal to inspection, nondistended, normoactive bowel sounds present, Soft to palpation, non-tender and No hepatosplenomegaly present INSPECTION: Yes normal to inspection AUSCULTATION: Yes normoactive bowel sounds PALPATION: Yes Soft to palpation and Yes No hepatosplenomegaly present RECTAL EXAM: deferred Extremity: COMMON NORMALS: normal to inspection GENERAL: Yes normal exam except as noted Neuro: COMMON NORMALS: patient oriented x3 SENSORIUM/ORIENTATION: Yes alert, Yes oriented to person, Yes oriented to place and Yes oriented to time CRANIAL NERVES: Yes CN normal except as noted Psych: COMMON NORMALS: mental status grossly normal, Normal thought process present, cooperative, activity/motor behavior normal, denies homicidal ideation and denies suicidal ideation THOUGHT PROCESS: Normal thought process present Skin: COMMON NORMALS: no rashes or lesions noted, no wounds and turgor normal GENERAL SKIN EXAM: no rashes or lesions noted and turgor normal Course 2 Vital Signs: Vital signs: Vital Signs Temperature 98.1 F 11/13/24 12:08 Pulse Rate 92 11/13/24 12:08 Respiratory Rate 18 11/13/24 12:08 Blood Pressure 106/72 11/13/24 12:08 Pulse Oximetry 100 11/13/24 12:08 Oxygen Delivery Me thod Room Air 11/13/24 12:08 MDM - Female Medical Decision Making Patient evaluated in the emergency department today for complaints of vaginal bleeding. Patient estimates that she is 6 to 7 weeks . Found out last week. Began bleeding vaginally yesterday evening and it worsened today. Patient is O+. Her hCG quant was 2070. She did undergo an ultrasound which reveals a gestational sac and estimated 5 weeks 2 days. She does have small amount of fluid in the right adnexa and the left ovary is fine. The right ovary was moved 4 years ago for a teratoma. Patient sees her OB in the morning Her urinalysis does not reveal leukoesterase, nitrates, or bacteria. Patient's been instructed to return to the emergency department for new, concerning, worsening symptoms but otherwise follow-up with LIBRARY SERVICES COORDINATOR in the morning Patient does not desire to wait for radiologist read. She has heard the ict support technicians read. She will follow-up with LIBRARY SERVICES COORDINATOR tomorrow as planned Lab Data 11/13/24 12:20 Laboratory Results WBC 8.65 10^3/uL (3.29-11.43) 11/13/24 12:20 RBC 4.97 10^6/uL (3.85-5.65) 11/13/24 12:20 Hgb 12.50 g/dL (11.27-16.99) 11/13/24 12:20 Hct 40.0 % (36-47) 11/13/24 12:20 MCV 80.5 fl (85-98) L 11/13/24 12:20 MCH 25.2 pg (27-33) L 11/13/24 12:20 MCHC 31.3 g/dL (30-55) 11/13/24 12:20 RDW 15.9 % (12.1-15.1) H 11/13/24 12:20 Plt Count 243 10^3/cmm (157-399) 11/13/24 12:20 MPV 10.2 fL (7.4-10.4) 11/13/24 12:20 Neut % (Auto) 66.4 % 11/13/24 12:20 Lymph % (Auto) 21.0 % 11/13/24 12:20 [place] % (Auto) 8.8 % 11/13/24 12:20 Eos % (Auto) 3.1 % 11/13/24 12:20 Baso % (Auto) 0.5 % 11/13/24 12:20 Neut # (Auto) 5.74 10^3/uL (1.8-7.7) 11/13/24 12:20 Lymph # (Auto) 1.8 10^3/uL (0.8-4.8) 11/13/24 12:20 [place] # (Auto) 0.8 10^3/uL (0.2-0.9) 11/13/24 12:20 Eos # (Auto) 0.3 10^3/uL (0.0-0.8) 11/13/24 12:20 Baso # (Auto) 0.0 10^3/uL (0.0-0.1) 11/13/24 12:20 Nucleated RBC % (auto) 0 % 11/13/24 12:20 Nucleated RBCs # 0.0 /100WBC 11/13/24 12:20 Ser , Semi-Qnt 2071.00 mIU/mL 11/13/24 12:20 Urine Color Yellow (Yellow) 11/13/24 13:34 Urine Appearance Clear (CLEAR) 11/13/24 13:34 Urine pH 6.5 (5-7) 11/13/24 13:34 Ur Specific [place] 1.014 (1.005-1.030) 11/13/24 13:34 Urine Protein Negative (Negative) 11/13/24 13:34 Urine Glucose (UA) Negative (Normal) 11/13/24 13:34 Urine Ketones Negative (Negative) 11/13/24 13:34 Urine Blood Trace (Negative) A 11/13/24 13:34 Urine Nitrate Negative (Negative) 11/13/24 13:34 Urine Bilirubin Negative (Negative) 11/13/24 13:34 Urine Urobilinogen 0.2 mg/dL (Negative) 11/13/24 13:34 Ur Leukocyte Esterase Trace (Negative) A 11/13/24 13:34 Urine RBC 0-2 /hpf (0-2) 11/13/24 13:34 Urine WBC 0-5 /hpf (0-5) 11/13/24 13:34 Ur Squamous Epith Cells 0-5 /hpf (0-5) 11/13/24 13:34 Amorphous Sediment Not Reportable 11/13/24 13:34 Urine Bacteria None seen /hpf (NONE) 11/13/24 13:34 Hyaline Casts 0-4 /lpf H 11/13/24 13:34 Blood Type O Positive 11/13/24 12:20 Rho(D) Type Rh positive 11/13/24 12:20 XR interpretation done by ED provider, pending radiology final review Discharge Plan Discharge Patient Disposition: Home Clinical Impression: Vaginal bleeding before 22 weeks gestation, Threatened Condition: Stable Prescriptions: No Action No Known Home Medications Discharge Orders: Discharge ED (Routine); Ordered 11/13/24 Ordered By: Edgar Siegel McTeer Referrals: Eddie Correa MD [Primary Care Provider] - Discharge Diet: Advance as tolerated Discharge Activity: Resume usual activity Patient Instructions: Threatened Miscarriage (ED), Pain Management Activity Restrictions/Additional Instructions: Please follow-up with your LIBRARY SERVICES COORDINATOR tomorrow morning as planned. 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
[2024-11-13 14:11] LABS: Add Urine Microscopic? YES; Bacteria Urine None Seen /hpf; Hyaline Casts Urine 0-4 /lpf; RBC Urine 0-2 /hpf (0-2); Squamous Epithelial Cell Urine 0-5 /hpf (0-5); WBC Urine 0-5 /hpf (0-5)
== END 2024-11-13 15:22 | disposition home or self-care (01) ==
PROVIDERS: Student in an Organized Health Care Education/Training Program; Emergency Provider Nurse Practitioner; PCP Family Medicine
DX: O20.0 Threatened abortion (principal); Z3A.01 Less than 8 weeks gestation of pregnancy
CPT/HCPCS: 36415; 76801; 76817; 81001; 84702; 85025; 86900; 99284

== ENCOUNTER → 2025-05-25 12:45 | Outpatient (BNVA) | payer MEDICAID, SELFPAY | PROVIDERS: PCP Family Medicine; Visit Provider Nurse Practitioner Women's Health | DX: N93.9 Abnormal uterine and vaginal bleeding, unspecified (principal); N94.6 Dysmenorrhea, unspecified; Z90.721 Acquired absence of ovaries, unilateral | CPT/HCPCS: 76830 ==

== ENCOUNTER 2025-06-02 12:29 | Outpatient (CLI) | payer MEDICAID, SELFPAY ==
--- NOTE | 2025-06-02 12:35 | XR_ITS ---
WS: [id number] PA chest, 06/02/2025 Clinical Data: constipation Comparison: None. Findings: No nodules, masses or effusions are seen. The heart is normal. The pulmonary vascularity is not increased. No pneumonia or pneumothorax is seen. COMPARISON: None FINDINGS: There is air in the stomach, small bowel and colon. No obstruction is seen. No abnormal intra-abdominal masses or calcifications are seen. There is a moderate amount of fecal material in the colon. XR/XR abdomen 3V [id number] Impression: Negative chest KUB, AP view CLINICAL DATA: Constipation IMPRESSION: Moderate amount of fecal material in the colon.
== END 2025-06-02 12:30 | disposition home or self-care (01) ==
LOC: RAD 12:30
PROVIDERS: PCP Family Medicine; Visit Provider Nurse Practitioner
DX: K59.00 Constipation, unspecified (principal)
CPT/HCPCS: 74021